=== PATIENT | male | born 1965 | race Caucasian/White ===

== ENCOUNTER → 2017-02-20 | Outpatient (CLI) | payer BC, OTHER | LOC: CAT 08:11 | DX: M19.012 Primary osteoarthritis, left shoulder (principal) ==

== ENCOUNTER → 2017-03-20 | Outpatient (CLI) | payer OTHER | LOC: RAD 12:36 | DX: Z01.818 Encounter for other preprocedural examination (principal); M19.012 Primary osteoarthritis, left shoulder; R53.1 Weakness ==

== ENCOUNTER → 2017-06-20 | Outpatient (CLI) | payer OTHER | LOC: CAT 11:12 | DX: R51 Headache (principal); J32.9 Chronic sinusitis, unspecified; G31.9 Degenerative disease of nervous system, unspecified ==

== ENCOUNTER → 2017-08-07 | Outpatient (CLI) | payer OTHER | LOC: CAT 06:16 | DX: I25.84 Coronary atherosclerosis due to calcified coronary lesion (principal); K76.0 Fatty (change of) liver, not elsewhere classified; R61 Generalized hyperhidrosis ==

== ENCOUNTER → 2018-12-31 | Outpatient (CLI) | payer OTHER | LOC: RAD 13:57 | DX: M25.462 Effusion, left knee (principal) ==

== ENCOUNTER → 2019-09-28 | Outpatient (CLI) | payer OTHER | LOC: RAD 12:33 | PROVIDERS: ATTEND Emergency Medicine | DX: M79.89 Other specified soft tissue disorders (principal); Z96.652 Presence of left artificial knee joint ==

== ENCOUNTER → 2020-11-08 | Outpatient (CLI) | payer OTHER | LOC: RAD 12:41 | PROVIDERS: ATTEND Emergency Medicine Emergency Medical Services | DX: M25.562 Pain in left knee (principal); Z96.652 Presence of left artificial knee joint ==